=== PATIENT | female | born 1995 ===

== ENCOUNTER 2017-01-29 23:18 | Emergency (ER) | payer SELFPAY ==
[2017-01-29 23:54] VITALS: BP 120/66
[2017-01-30 04:25] LABS: Bilirubin,Urine NEG (Negative); Blood,Urine SM (Negative); Ketones,Urine TR mg/dL (Negative); Leukocyte Esterase,Urine NEG (Negative); Mucus,Urine FEW /HPF; Nitrite,Urine NEG (Negative); Protein,Urine <15 mg/dL mg/dL (Negative); Urobilinogen,Urine < 2.0 mg/dL (<2.0)
== END 2017-01-30 05:56 | disposition left against medical advice (07) ==
LOC: ED 23:18
DX: R51 Headache (principal); Z53.21 Procedure and treatment not carried out due to patient leaving prior to being seen by health care provider
CPT/HCPCS: 81001; 81025